=== PATIENT | female | born 1960 | race Two or more races ===

== ENCOUNTER → 2016-03-30 | Outpatient (REF) | payer OTHER | LOC: M SMT 12:56 | PROVIDERS: ATTEND Nurse Practitioner Family | DX: R31.9 Hematuria, unspecified (principal) ==

== ENCOUNTER → 2016-04-05 | Outpatient (CLI) | payer OTHER ==
[~2016-04-05] MED LIST: ISOVUE-370 76% 100ML VIAL (Q9967) As Ordered ONE
--- NOTE | 2016-04-05 08:51 | REP ---
Clinical: Hematuria. Technique: Precontrast, contrast enhanced, and delayed images of the abdomen and pelvis using 100 ml Isovue 370 intravenous contrast material with delayed coronal and sagittal re-formations as well as multi rotational MIP urogram re-formations. Findings: Evaluation of the urinary tract system demonstrates a 6 mm nonobstructing left nephrolith without hydroureteronephrosis perinephric stranding, obstructing ureteral calculi, renal cystic or mass lesions. Kidneys demonstrate symmetric enhancement patterns. Collecting system appears normal on delayed and MIP imaging sequences. The ureters and bladder are normal. Liver, spleen, pancreas, gallbladder, and bilateral adrenal glands are normal. The enteric system is without obstruction or acute inflammatory process. Pelvis demonstrates normal bladder and evidence for prior hysterectomy. No pelvic fluid or ascites. No intraperitoneal or retroperitoneal adenopathy. No free air. Abdominal aorta and vasculature appears relatively normal and without aneurysm or dissection. Postsurgical changes including surgical clips in the anterior abdominal wall and small fat containing periumbilical surgical scar suggested. Musculoskeletal structures demonstrate age-related changes without focal osseous abnormality. Lung bases are clear. Impression: 1. Urinary tract system demonstrates 6 mm nonobstructing left renal calculus and is otherwise unremarkable. 2. Evidence for prior anterior abdominal wall surgery and prior hysterectomy. 3. No further acute intra-abdominal or pelvic pathology appreciated. Signed by Pierre Toscano MD 04/05/2016 08:42 A
== END ==
LOC: M RAD 07:26
PROVIDERS: ATTEND Nurse Practitioner Family
DX: R31.0 Gross hematuria (principal)
CPT/HCPCS: 74178; Q9967

== ENCOUNTER → 2016-05-05 | Day surgery (SDC) | payer OTHER ==
[~2016-05-05] VITALS: Ht 157.5 cm; Wt 68.0 kg
[~2016-05-05] MED LIST changes: +BUPR15TA PO; +FISH100049 PO; +FLON1SPR; -ISOVUE-370 76% 100ML VIAL (Q9967) As Ordered ONE; +LEVO88TA3 PO; +LIDOCAINE 2% INJ 100 MG/5 ML SDV (FOR ANES.) As Ordered ONE; +LIPI20TA PO; +LR 1,000 ML IV SCH; +MECL12.575 PO; +MIDAZOLAM INJ 2 MG/2 ML VIAL (J2250) As Ordered ONE; +ONDANSETRON 4MG/2ML VIAL (J2405) As Ordered ONE; +PERCOCET 5MG/325MG TAB PO PRN; +PROBCAP4 PO; +PROPOFOL 200 MG/20 ML VIAL As Ordered ONE; +TRIA0.5O TOP; +VITA10006 PO; +XANA0.25 PO; +dexameTHASONE 4 MG/ML 1ML VIAL (J1100) As Ordered ONE
--- NOTE | 2016-05-05 10:20 | REP ---
Clinical: Left renal stone. Technique: Single supine view of the abdomen and pelvis. Findings: Evaluation of the urinary tract system is limited due to overlying bowel gas. No obvious renal or ureteral calcifications are identified. 2 mm calcification in the left nalini pelvis likely phleboliths. Small surgical sofia noted throughout the abdomen and pelvis. Bowel gas pattern is nonspecific. Skeletal structures are intact. Impression: Limited evaluation for urinary tract calcifications. Signed by Pierre Toscano MD 05/05/2016 10:11 A
[2016-05-05 10:45] VITALS: BP 126/80
--- NOTE | 2016-05-06 07:00 | RO ---
DATE OF PROCEDURE: 05/05/2016 PREPROCEDURE DIAGNOSIS: Left kidney stone. POSTPROCEDURE DIAGNOSIS: Left kidney stone. PROCEDURE: Left extracorporeal shockwave lithotripsy. SURGEON: Dr. Nate Garcia TAPE MACHINE TAILER: None. ANESTHESIA: Monitored anesthesia care (MAC). OPERATIVE INDICATIONS: This is a 55-year-old female who was found to have an approximately 7 mm sized nonobstructing left kidney stone. It was recommended she be brought to the operating room today for the above listed procedure. DESCRIPTION OF PROCEDURE: The patient was brought to the operating room and MAC anesthesia was administered. Prophylactic antibiotics were infused. She was then placed in the supine position in preparation for left sided extracorporeal shockwave lithotripsy. Fluoroscopy and ultrasonography utilized to monitor stone position and fragmentation throughout the procedure. Shockwaves were then delivered to the left sided kidney stone ungated. There were no arrhythmias. The stone did appear to fragment well. After 2500 shocks, the procedure was concluded. The patient was then awakened from anesthesia and transported to the recovery room in stable condition. ESTIMATED BLOOD LOSS: 0 mL. COMPLICATIONS: None. SPECIMENS: None. PLAN: The patient will followup in the clinic in a few weeks with imaging prior to assess for residual stone burden. KATIE
== END ==
LOC: M SDC 06:29
PROVIDERS: ATTEND Urology
DX: N20.0 Calculus of kidney (principal); G61.0 Guillain-Barre syndrome; E03.9 Hypothyroidism, unspecified; I49.5 Sick sinus syndrome; E78.00 Pure hypercholesterolemia, unspecified; Z95.0 Presence of cardiac pacemaker; F32.9 Major depressive disorder, single episode, unspecified; G47.30 Sleep apnea, unspecified; Z85.3 Personal history of malignant neoplasm of breast; Z92.3 Personal history of irradiation; Z92.21 Personal history of antineoplastic chemotherapy; Z88.8 Allergy status to other drugs, medicaments and biological substances; Z88.1 Allergy status to other antibiotic agents; Z88.5 Allergy status to narcotic agent; Z88.2 Allergy status to sulfonamides; Z79.899 Other long term (current) drug therapy
CPT/HCPCS: 50590; 74000; J0690; J1100; J2250; J2405

== ENCOUNTER → 2016-05-26 | Outpatient (CLI) | payer OTHER ==
[~2016-05-26] MED LIST changes: -LIDOCAINE 2% INJ 100 MG/5 ML SDV (FOR ANES.) As Ordered ONE; -LR 1,000 ML IV SCH; -MIDAZOLAM INJ 2 MG/2 ML VIAL (J2250) As Ordered ONE; -ONDANSETRON 4MG/2ML VIAL (J2405) As Ordered ONE; -PERCOCET 5MG/325MG TAB PO PRN; -PROPOFOL 200 MG/20 ML VIAL As Ordered ONE; -dexameTHASONE 4 MG/ML 1ML VIAL (J1100) As Ordered ONE
--- NOTE | 2016-05-26 09:22 | REP ---
KUB ABDOMEN/PELVIS: KUB film of abdomen/pelvis performed and compared to prior study of 05/05/2016. Subcentimeter calculus is noted in the mid left kidney as seen on the prior CT of 04/05/2016. There is a phlebolith in the inferior left pelvis. Multiple scattered metallic clips are present in the abdomen and pelvis. There is moderate fecal material throughout the colon. No dilated small bowel loops are seen. There are mild degenerative changes of the spine. IMPRESSION: Intrarenal calculus mid left kidney. Signed by Donavon Amor MD 05/26/2016 04:49 P
== END ==
LOC: M SMT 08:20
PROVIDERS: ATTEND Nurse Practitioner Family
DX: N20.0 Calculus of kidney (principal)

== ENCOUNTER → 2017-12-04 | Outpatient (CLI) | payer OTHER ==
[2017-12-04 17:43] LABS: ANION GAP 7 MEQ/L (8-16); BLOOD UREA NITROGEN 18 MG/DL (7-18); CALCIUM LEVEL 9.2 MG/DL (8.5-10.1); CARBON DIOXIDE LEVEL 30 MEQ/L (21-32); CHLORIDE LEVEL 106 MEQ/L (98-107); CREATININE FOR GFR 0.83 MG/DL (0.55-1.30); GLOMERULAR FILTRATION RATE > 60.0 (>51); GLUCOSE, FASTING 101 MG/DL (70-100); POTASSIUM SERUM 4.7 MEQ/L (3.5-5.1); SODIUM LEVEL 143 MEQ/L (136-145)
[2017-12-04 19:19] LABS: APPEARANCE, URINE CLEAR (CLEAR); BACTERIA, URINE AUTO NEGATIVE (NEGATIVE); BILIRUBIN, URINE AUTO NEGATIVE (NEGATIVE); BLOOD, URINE BLOOD NEGATIVE (NEGATIVE); COLOR, URINE STRAW (YELLOW); GLUCOSE, URINE (UA) AUTO NEGATIVE (NEGATIVE); KETONE, URINE AUTO NEGATIVE (NEGATIVE); LEUKOCYTE ESTERASE, URINE AUTO NEGATIVE (NEGATIVE); NITRITE, URINE AUTO NEGATIVE (NEGATIVE); PROTEIN, URINE AUTO NEGATIVE (NEGATIVE); RBC, URINE AUTO 1 /HPF (0-3); SPECIFIC GRAVITY URINE AUTO 1.006 (1.002-1.035); SQUAMOUS EPITHELIAL CELL UR AU 0 /HPF (0-6); UROBILINOGEN, URINE AUTO 0.2 mg/dL (0.0-2.0); WBC, URINE AUTO 0 /HPF (0-3)
== END ==
LOC: M SMT 13:46
DX: R31.0 Gross hematuria (principal)

== ENCOUNTER → 2018-09-24 | Outpatient (REF) | payer OTHER | LOC: M LAB LCGH 15:17 | PROVIDERS: ATTEND Nurse Practitioner Family | DX: R31.0 Gross hematuria (principal) ==

== ENCOUNTER → 2019-10-07 | Outpatient (REF) | payer OTHER ==
[~2019-10-07] MED LIST changes: -MECL12.575 PO; +MECL12.589 PO
[2019-11-23 15:56] LABS: APPEARANCE, URINE CLEAR (CLEAR); BACTERIA, URINE AUTO 1+ (NEGATIVE); BILIRUBIN, URINE AUTO NEGATIVE (NEGATIVE); BLOOD, URINE BLOOD NEGATIVE (NEGATIVE); COLOR, URINE YELLOW (YELLOW); GLUCOSE, URINE (UA) AUTO NEGATIVE (NEGATIVE); KETONE, URINE AUTO NEGATIVE (NEGATIVE); LEUKOCYTE ESTERASE, URINE AUTO TRACE (NEGATIVE); NITRITE, URINE AUTO NEGATIVE (NEGATIVE); PROTEIN, URINE AUTO NEGATIVE (NEGATIVE); RBC, URINE AUTO 2 /HPF (0-3); SPECIFIC GRAVITY URINE AUTO 1.019 (1.002-1.035); SQUAMOUS EPITHELIAL CELL UR AU 1 /HPF (0-6); UROBILINOGEN, URINE AUTO 0.2 mg/dL (0.0-2.0); WBC, URINE AUTO 11 /HPF (0-3)
== END ==
LOC: M SMT 07:31
PROVIDERS: ATTEND Nurse Practitioner Family
DX: R31.0 Gross hematuria (principal)

== ENCOUNTER → 2020-05-27 | Outpatient (REF) | payer OTHER ==
[~2020-05-27] MED LIST changes: +MECL-136 PO; -MECL12.589 PO
== END ==
LOC: M LAB REF 18:50
PROVIDERS: ATTEND Physician Assistant
DX: R21 Rash and other nonspecific skin eruption (principal)

== ENCOUNTER → 2021-04-19 | Outpatient (CLI) | payer OTHER ==
[~2021-04-19] MED LIST changes: +ISOVUE-370 76% 100ML VIAL As Ordered ONE
== END ==
LOC: M RAD 07:51
PROVIDERS: ATTEND Psychiatry & Neurology Neurology
DX: R42 Dizziness and giddiness (principal); R51.9 Headache, unspecified

== ENCOUNTER → 2021-05-20 | Outpatient (REF) | payer OTHER ==
[~2021-05-20] MED LIST changes: -ISOVUE-370 76% 100ML VIAL As Ordered ONE
== END ==
LOC: M SFHCDERM 17:21
PROVIDERS: ATTEND Physician Assistant
DX: D48.9 Neoplasm of uncertain behavior, unspecified (principal)

== ENCOUNTER → 2022-12-19 | Outpatient (REF) | payer OTHER | LOC: M SFHCDERM 17:41 | PROVIDERS: ATTEND Physician Assistant | DX: L98.0 Pyogenic granuloma (principal) ==

== ENCOUNTER 2024-02-06 10:25 | Day surgery (SDC) | payer OTHER ==
[~2024-02-06] VITALS: Ht 157.5 cm; Wt 65.5 kg
[~2024-02-06 10:25] MED LIST changes: +DOXY50CA7 PO; +LUTE15CA PO; +MELO15TA28 PO; +VALA500T5 PO; +VITAMIN C PO; +collagen powder PO
[2024-02-06] MEDS ORDERED: fentaNYL 100 MCG/2 ML INJECTION As Ordered ONE (12:44)
[2024-02-06] MEDS ORDERED: MIDAZOLAM INJ 2MG/2ML VIAL As Ordered ONE (12:44)
[2024-02-06] MEDS ORDERED: LIDOCAINE 2% 100MG/5ML SDV (FOR ANES.) As Ordered ONE (12:44)
[2024-02-06] MEDS ORDERED: propofoL 200 MG/20 ML VIAL As Ordered ONE (12:44)
[2024-02-06] MEDS ORDERED: ONDANSETRON 4MG 2ML VIAL As Ordered ONE (12:44)
[2024-02-06] MEDS: ceFAZolin SOD 2 GM in IV 1 EA IV ONE (13:05)
[2024-02-06] MEDS ORDERED: ACETAMINOPHEN 1000MG/100ML IV BAG As Ordered ONE (13:11)
[2024-02-06] MEDS: ceFAZolin 1GM VIAL As Ordered ONE (13:29)
[2024-02-06] MEDS: AMIODARONE 150MG/3ML VIAL As Ordered ONE (14:06)
[2024-02-06] MEDS: LIDOCAINE 1% SDV 30ML VIAL As Ordered ONE (14:06)
[2024-02-06] MEDS: ISOVUE-300 61% 100ML VIAL As Ordered ONE (14:07)
[2024-02-06 14:48] VITALS: BP 141/83; TEMP 97.9; O2SAT 97
== END 2024-02-06 14:55 | disposition home or self-care (01) ==
LOC: M SDC 10:25
PROVIDERS: ATTEND Internal Medicine Cardiovascular Disease
DX: Z45.010 Encounter for checking and testing of cardiac pacemaker pulse generator [battery] (principal); I44.2 Atrioventricular block, complete; E03.9 Hypothyroidism, unspecified; Z85.3 Personal history of malignant neoplasm of breast; Z88.2 Allergy status to sulfonamides; Z88.5 Allergy status to narcotic agent; Z88.8 Allergy status to other drugs, medicaments and biological substances; Z79.899 Other long term (current) drug therapy
CPT/HCPCS: 33228; 76000; J0131; J0690; J1100; J2250; J2405; J3010